=== PATIENT | male | born 1960 | race Caucasian/White ===

== ENCOUNTER 2022-12-09 10:32 | Emergency (ER) | payer OTHER ==
[~2022-12-09] VITALS: Ht 180.3 cm; Wt 83.9 kg
[2022-12-09 10:52] VITALS: BP 169/107
[2022-12-09] MEDS ORDERED: Norco 5-325 Ta1 EACH PO (12:03)
== END 2022-12-09 12:32 | disposition home or self-care (01) ==
LOC: ER 10:32
DX: M25.512 Pain in left shoulder (principal)
CPT/HCPCS: 73030; 99283-25; A9270